=== PATIENT | male | born 1990 | race Two or more races ===

== ENCOUNTER 2018-02-01 21:42 | Emergency (ER) | payer OTHER ==
[~2018-02-01] VITALS: Ht 188 cm; Wt 138.5 kg
[2018-02-01 21:43] VITALS: BP 160/94
== END 2018-02-01 22:31 | disposition home or self-care (01) ==
LOC: ED 22:25
DX: R21 Rash and other nonspecific skin eruption (principal)
CPT/HCPCS: 99283